=== PATIENT | female | born 1995 | race Caucasian/White ===

== ENCOUNTER 2017-06-26 20:42 | Emergency (ER) | payer MEDICAID ==
[~2017-06-26] VITALS: Ht 157.5 cm; Wt 56.7 kg
[2017-06-26 20:58] VITALS: BP_SYST 105
[2017-06-26] MEDS ORDERED: PREDNISONE 20 MG TABLET PO ONE (21:30)
[2017-06-26] MEDS ORDERED: IBUPROFEN 800 MG TABLET PO ONE (21:30)
[2017-06-26] MEDS ORDERED: AMOXICILLIN 500 MG CAPSULE PO ONE (21:30)
[2017-06-26] MEDS ORDERED: NACL 0.9% 1,000 ML IV ONE (21:30)
[2017-06-26 22:48] VITALS: BP_SYST 117
== END 2017-06-26 22:48 | disposition home or self-care (01) ==
LOC: SED 20:42
DX: J02.0 Streptococcal pharyngitis (principal)
CPT/HCPCS: 36415; 81025; 86403; 87081; 96360; 99284; J7030; J7512